=== PATIENT | male | born 1995 | race Caucasian/White ===

== ENCOUNTER 2023-12-29 15:32 | Emergency (ER) | payer SELFPAY ==
[2023-12-29 16:19] LABS: Absolute Basophils 0.1 K/uL (0-0.5); Absolute Eosinophils 0.5 K/uL (0-0.5); Absolute Lymphocytes (CBC) 3.7 K/uL (0.7-4.9); Absolute Neutrophil 5.4 K/uL (1.8-8.0); Basophils % 0.5 % (0-1.3); Eosinophils % 4.5 % (0-4.4); Hematocrit 39.3 % (39.6-49.0); Hemoglobin 13.5 g/dL (13.6-17.9); Lymphocytes % 34.9 % (15.3-44.8); MCH 33.8 pg (27.0-35.0); MCHC 34.3 g/dL (32.0-36.0); MCV 98.5 fL (80-100); MPV 7.5 fL (7.6-11.3); Neutrophils % 51.1 % (41.7-73.7); Platelets 255 thou/uL (152-406); RBC Red Blood Cell Count 3.99 M/uL (4.33-5.43); Red Cell Distribution Width 12.5 % (12.1-15.2)
[2023-12-29 16:31] LABS: Anion Gap 10.2 mEq/L (5.0-15.0); Potassium 3.2 mEq/L (3.5-5.1); Troponin High Sensitivity 8.9 pg/mL (<58.9)
--- NOTE | 2023-12-29 16:47 | RAD REPORT ---
EXAM DESCRIPTION: RAD - Chest Single View - 12/29/2023 4:38 pm CLINICAL HISTORY: CHEST PAIN Chest pain. COMPARISON: No comparisons FINDINGS: Portable technique limits examination quality. The lungs are grossly clear. The heart is normal in size. No displaced fractures. IMPRESSION: No acute intrathoracic process suspected.
--- NOTE | 2023-12-29 18:23 | ER ---
Nurse's Notes 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 ll1 Coronavirus screen: Client denies travel out of the [place] in the last 14 days. At this time, the client does not indicate any symptoms associated with coronavirus-19. Ebola Screen: Patient denies travel to an Ebola-affected area in the 21 days before illness onset. Initial Sepsis Screen: Does the patient meet any 2 criteria? No. Patient's initial sepsis screen is negative. Does the patient have a suspected source of infection? No. Patient's initial sepsis screen is negative. Risk Assessment: Do you want to hurt yourself or someone else? Patient reports no desire to harm self or others. Onset of symptoms was December 29, 2023. 15:47 Method Of Arrival: Ambulatory ll1 15:47 Acuity: ADRIAN 3 ll1 Historical: - Allergies: 15:47 No Known Allergies; ll1 - PMHx: 15:47 None; ll1 - PSHx: 15:47 None; ll1 - Immunization history:: Adult Immunizations up to date. - Infectious Disease History:: Denies. - Social history:: Smoking status: Patient reports the use of cigarette tobacco products, smokes one pack cigarettes per day. Screenin:11 [facility] ED Fall Risk Assessment (Adult) History of falling in the last 3 months, mb9 including since admission No falls in past 3 months (0 pts) Confusion or Disorientation No (0 pts) Intoxicated or Sedated No (0 pts) Impaired Gait No (0 pts) Mobility Assist Device Used No (0 pt) Altered Elimination No (0 pt) Score/Fall Risk Level 0 - 2 = Low Risk Oriented to surroundings, Maintained a safe environment, Educated pt \T\ family on fall prevention, incl call for assistance when getting out of bed. Abuse screen: Denies threats or abuse. Nutritional screening: No deficits noted. Tuberculosis screening: No symptoms or risk factors identified. Assessment: 16:10 General: Appears in no apparent distress. Behavior is calm, cooperative. Pain: mb9 Complains of pain in chest Pain does not radiate. Pain currently is 8 out of 10 on a pain scale. Quality of pain is described as throbbing, Pain began suddenly, Is continuous. Neuro: Gonzalez Agitation-Sedation Scale (RASS): 0 - Alert and Calm Level of Consciousness is awake, alert, obeys commands, Oriented to person, place, time, situation, Appropriate for age. Cardiovascular: Reports chest pain, shortness of breath, Heart tones S1 S2 present Patient's skin is warm and dry. Respiratory: Reports shortness of breath Airway is patent Respiratory effort is even, unlabored, Respiratory pattern is regular, symmetrical, Breath sounds are clear bilaterally. GI: Abdomen is round non-distended, Bowel sounds present X 4 quads. Abd is soft and non tender X 4 quads. : No signs and/or symptoms were reported regarding the genitourinary system. EENT: No signs and/or symptoms were reported regarding the EENT system. Derm: Skin is pink, warm \T\ dry. Musculoskeletal: Range of motion: intact in all extremities. 17:59 Reassessment: No changes from previously documented assessment. Patient and/or family mb9 updated on plan of care and expected duration. Pain level reassessed. Patient is alert, oriented x 3, equal unlabored respirations, skin warm/dry/pink. 18:24 Reassessment: Patient appears in no apparent distress at this time. No changes from mb9 previously documented assessment. Patient and/or family updated on plan of care and expected duration. Pain level reassessed. Patient is alert, oriented x 3, equal unlabored respirations, skin warm/dry/pink. Vital Signs: 15:47 Resp 18; Temp 98.3; Weight 83.91 kg; Height 5 ft. 8 in. ; Pain 6/10; ll1 16:14 BP 124 / 74; Pulse 80; Pulse Ox 99% ; ec2 16:57 BP 114 / 67; Pulse 78; Resp 18; Pulse Ox 97% on R/A; mb9 17:58 BP 112 / 61; Pulse 74; Resp 16; Pulse Ox 96% on R/A; mb9 15:47 Body Mass Index 28.13 (83.91 kg, 172.72 cm) ll1 15:47 Pain Scale: Adult ll1 ED Course: 15:39 Patient arrived in ED. ts1 15:40 Francisco Javier Frances MD is Attending Physician. ec2 15:47 Triage completed. ll1 15:47 Arm band placed on Patient placed in an exam room, on a stretcher. ll1 15:55 EKG done, by ED staff, reviewed by Francisco Javier Frances MD. mb9 16:02 Nunu Do, RN is Primary Nurse. mb9 16:09 Basic Metabolic Panel Sent. mb9 16:09 CBC with Diff Sent. mb9 16:09 Troponin HS Sent. mb9 16:09 Initial lab(s) drawn, by de, sent to lab. Inserted saline lock: 20 gauge in right mb9 antecubital area, using aseptic technique. Blood collected. 16:11 Placed in gown. Bed in low position. Call light in reach. Side rails up X 1. Provided mb9 Education on: press call light if needing anything. Client placed on continuous cardiac and pulse oximetry monitoring. NIBP monitoring applied. hospital monitor on. Door closed. Noise minimized. Warm blanket given. 16:11 No provider procedures requiring assistance completed. mb9 16:40 XRAY Chest (1 view) In Process Unspecified. EDMS 17:58 EKG done, by ED staff, reviewed by Francisco Javier Frances MD. mb9 18:24 IV discontinued, intact, bleeding controlled, No redness/swelling at site. Pressure mb9 dressing applied. Administered Medications: No medications were administered Medication: 16:11 VIS not applicable for this client. mb9 Outcome: 18:23 Discharge ordered by . ec2 18:24 Discharged to home ambulatory, mb9 18:24 Condition: stable 18:24 Discharge instructions given to patient, Instructed on discharge instructions, follow up and referral plans. Demonstrated understanding of instructions, follow-up care, 18:35 Patient left the ED. mb9 Signatures: Dispatcher [employer] Shubham Martell RN RN 1 Nunu Do, RN RN Venessa Garcia PAS PAS ts1 Francisco Javier Frances MD MD ec2 Corrections: (The following items were deleted from the chart) 16:58 16:57 Pulse 78bpm; Resp 18bpm; Pulse Ox 97% RA; mb9 mb9
--- NOTE | 2023-12-29 18:24 | EDPHYS ---
Physician Documentation [facility] Name: Tirso Rey Age: 28 yrs Sex: Male : 1995 Arrival Date: 12/29/2023 Time: 15:32 Bed 15 Private MD: ED Physician Francisco Javier Frances HPI: 12/28 16:13 This 28 yrs old Male presents to ER via Ambulatory with complaints of Chest ec2 Pain. 16:13 Patient arrives today due to concern for reported chest pain. Patient with no ec2 significant medical problems. Patient complaining of chest pain, nonexertional, no specific alleviating or exacerbating factors. Patient reports no significant medical problems, denies any cardiac disease.. Historical: - Allergies: 15:47 No Known Allergies; ll1 - PMHx: 15:47 None; ll1 - PSHx: 15:47 None; ll1 - Immunization history:: Adult Immunizations up to date. - Infectious Disease History:: Denies. - Social history:: Smoking status: Patient reports the use of cigarette tobacco products, smokes one pack cigarettes per day. ROS: 16:13 Constitutional: as per hpi ec2 Exam: 16:13 Constitutional: GEN: NAD Head: atraumatic Eyes: EOMI Ears: External ears are ec2 normal. CV: regular rate LUNGS: no respiratory distress ABD: non-distended SKIN: no evidence of rashes MSK: no evidence of trauma NEURO: moves all extremities equally Vital Signs: 15:47 Resp 18; Temp 98.3; Weight 83.91 kg; Height 5 ft. 8 in. ; Pain 6/10; ll1 16:14 BP 124 / 74; Pulse 80; Pulse Ox 99% ; ec2 16:57 BP 114 / 67; Pulse 78; Resp 18; Pulse Ox 97% on R/A; mb9 17:58 BP 112 / 61; Pulse 74; Resp 16; Pulse Ox 96% on R/A; mb9 15:47 Body Mass Index 28.13 (83.91 kg, 172.72 cm) ll1 15:47 Pain Scale: Adult ll1 MDM: 15:57 ED course: EKG independently reviewed and interpreted by me, shows normal sinus rhythm, ec2 rate of 79, no acute ST segment elevations, intervals are nonconcerning.. 15:58 Patient medically screened. ec2 16:13 Data reviewed: vital signs. ED course: Patient arrives today for evaluation of chest ec2 pain. Examination remarkable for well-appearing nontoxic but is otherwise in no acute distress. Will obtain lab work, chest x-ray as well. Offered the patient pain medications however he is comfortable and sleeping without any distress. Evaluate for ACS, doubt PE, doubt dissection.. 17:07 ED course: Metabolic profile shows hypokalemia with a potassium of 3.2, renal ec2 dysfunction with a creatinine of 1.45. CBC shows slight anemia. Troponin is within normal ranges. Chest x-ray shows no acute intrathoracic process. . 18:02 ED course: Repeat EKG independently reviewed and interpreted by me, shows normal sinus ec2 rhythm, rate of 76, no acute ST segment elevations, intervals are nonconcerning. Pending repeat troponin.. 18:23 ED course: Repeat troponin is unchanged. Will discharge home. Return precautions given. ec2 . 12/28 15:56 Order name: Basic Metabolic Panel; Complete Time: 17:06 ec2 12/28 15:56 Order name: CBC with Diff; Complete Time: 17:06 ec2 12/28 15:56 Order name: Troponin HS; Complete Time: 17:06 ec2 12/28 17:20 Order name: Troponin High Sensitivity; Complete Time: 18:23 mb9 12/28 15:56 Order name: XRAY Chest (1 view); Complete Time: 17:06 ec2 12/28 15:56 Order name: Cardiac monitoring; Complete Time: 16:02 ec2 12/28 15:56 Order name: EKG - Nurse/Tech; Complete Time: 16:02 ec2 12/28 15:56 Order name: IV Saline Lock; Complete Time: 16:02 ec2 12/28 15:56 Order name: Labs collected and sent; Complete Time: 16:02 ec2 12/28 15:56 Order name: O2 Per Protocol; Complete Time: 16: ec2 12/28 15:56 Order name: O2 Sat Monitoring; Complete Time: 16:02 ec2 12/28 17:07 Order name: Misc. Order: repeat ekg and trop at 1800; Complete Time: 17:53 ec2 Administered Medications: No medications were administered Disposition Summary: 12/29/23 18:23 Discharge Ordered Notes: Location: Home ec2 Condition: Stable ec2 Diagnosis - Chest pain, unspecified ec2 Followup: ec2 - With: Private Physician - When: - Reason: Re-evaluation by your physician Discharge Instructions: - Discharge Summary Sheet mb9 Forms: - Work release form mb9 - Medication Reconciliation Form ec2 - Antibiotic Education ec2 - Prescription Opioid Use ec2 - Patient Portal Instructions ec2 - Leadership Thank You Letter ec2 Signatures: Dispatcher [employer] Shubham Martell RN RN [facility] Francisco Javier Frances MD MD ec2
[2023-12-29 18:51] VITALS: BP 112/61; TEMP 98.3; O2SAT 96
--- NOTE | 2023-12-31 13:22 | EKG ---
Test Date: 2023-12-29 Test Time: 15:53:24 General Utility Maintenance Repairer: YARITZA MEASUREMENT RESULTS: Intervals: Rate: 79 IA: 158 QRSD: 96 QT: 390 QTc: 447 [place]: P: 47 IA: 158 QRS: 65 T: 46 INTERPRETIVE STATEMENTS: Normal sinus rhythm Normal ECG No previous ECG available for comparison Electronically Signed On 12-31-23 13:17:48 CDT by John Guajardo
--- NOTE | 2023-12-31 13:22 | EKG ---
Test Date: 2023-12-29 Test Time: 17:54:01 Case Packer And Sealer: YARITZA MEASUREMENT RESULTS: Intervals: Rate: 76 NM: 160 QRSD: 96 QT: 416 QTc: 468 [place]: P: 54 NM: 160 QRS: 73 T: 62 INTERPRETIVE STATEMENTS: Normal sinus rhythm Normal ECG Compared to ECG 12/29/2023 15:53:24 No significant changes Electronically Signed On 12-31-23 13:17:45 CDT by John Guajardo
== END 2023-12-29 18:35 | disposition home or self-care (01) ==
LOC: ER 15:32
DX: R07.9 Chest pain, unspecified (principal); F17.210 Nicotine dependence, cigarettes, uncomplicated
CPT/HCPCS: 36415; 71045; 80048; 84484; 85025; 93005; 99284